=== PATIENT | female | born 1995 | race Caucasian/White ===

== ENCOUNTER 2021-05-28 17:04 | Emergency (ER) | payer BC ==
[~2021-05-28 17:04] MED LIST: FLOMAX 0.4 MG0.4 MG PO; PERCOCET 5-3251 EACH PO; ZOFRAN ODT 4 MG4 MG PO
[2021-05-28 19:11] LABS: HEMOGLOBIN 15.3 gm/dl (12.3-15.3); RED BLOOD COUNT 4.87 M/UL (4.00-5.10)
[2021-05-28 19:41] LABS: BUN/CREATININE RATIO 19 (0-10)
== END 2021-05-28 20:58 | disposition home or self-care (01) ==
LOC: ER1 17:04
PROVIDERS: Physician Assistant
DX: T63.001A Toxic effect of unspecified snake venom, accidental (unintentional), initial encounter (principal); Z88.1 Allergy status to other antibiotic agents; Z88.8 Allergy status to other drugs, medicaments and biological substances
CPT/HCPCS: 73130; 80053; 82550; 82553; 83874; 84484; 85025; 85384; 85610; 85730; 90715; 99283